=== PATIENT | female | born 1990 | race Hispanic/Latino ===

== ENCOUNTER 2019-05-23 08:09 | Emergency (ER) | payer OTHER | END 2019-05-23 12:34 | disposition home or self-care (01) | LOC: EDH 08:09 | DX: B35.0 Tinea barbae and tinea capitis (principal); L65.9 Nonscarring hair loss, unspecified; R11.0 Nausea; Z87.891 Personal history of nicotine dependence | CPT/HCPCS: 70450; 81025 ==

== ENCOUNTER 2023-12-03 17:03 | Emergency (ER) | payer MEDICAID ==
[~2023-12-03] VITALS: Ht 165.1 cm; Wt 90.7 kg
[~2023-12-03 17:03] MED LIST: CYCL5TAB PO; IBUP-2070 PO
[2023-12-03 17:54] LABS: BASOPHILS # (AUTO) 0.05 K/uL (0.00-0.20); BASOPHILS % (AUTO) 0.5 % (0.0-5.0); EOSINOPHILS # (AUTO) 0.08 K/uL (0.00-0.70); EOSINOPHILS % (AUTO) 0.7 % (0.0-8.0); IMMATURE GRANULOCYTE ABSOLUTE 0.07 K/uL (0-1); LYMPHOCYTES # (AUTO) 2.2 K/uL (1.0-4.8); LYMPHOCYTES % (AUTO) 20.2 % (21.0-51.0); MEAN CORPUSCULAR HEMOGLOBIN 32.7 pg (27.0-33.0); MEAN CORPUSCULAR VOLUME 96.2 fL (79-99); MONOCYTES % (AUTO) 9.3 % (3.0-13.0); NEUTROPHILS # (AUTO) 7.6 K/uL (1.8-7.7); NEUTROPHILS % (AUTO) 68.7 % (40.0-77.0); PLATELET COUNT (AUTO) 335 K/uL (130-400); RED BLOOD CELL COUNT(AUTO) 4.16 MIL/uL (4.00-5.50)
[2023-12-03] MEDS: 0.9%NACL 1000ML 1,000 ML IV ONE (18:06)
[2023-12-03 18:16] LABS: ALBUMIN 3.8 g/dL (3.5-5.0); BILIRUBIN,TOTAL 0.7 mg/dL (0.2-1.0); CREATININE 0.8 mg/dL (0.5-1.0); MAGNESIUM 2.2 mg/dL (1.80-2.40); POTASSIUM 3.7 mmol/L (3.5-5.1); TOTAL PROTEIN, SERUM 7.4 g/dL (6.0-8.3)
[2023-12-03] MEDS: HYDROXYZINE 25 MG TABLET PO ONE (18:37)
[2023-12-03] MEDS: ONDANSETRON 4MG INJ IVP ONE (20:14)
[2023-12-03 20:32] VITALS: BP 124/79; PULSE 78; RESP 18; O2SAT 98
== END 2023-12-03 20:49 | disposition home or self-care (01) ==
LOC: EDH 17:03
DX: F41.9 Anxiety disorder, unspecified (principal); R07.89 Other chest pain; J44.9 Chronic obstructive pulmonary disease, unspecified; I10 Essential (primary) hypertension; F17.200 Nicotine dependence, unspecified, uncomplicated; Z88.1 Allergy status to other antibiotic agents; Z88.2 Allergy status to sulfonamides
CPT/HCPCS: 99285; 96374; 96361; 71045; 82550; 83735; 84484 ×2; 80053; 84703; 85025; 36415; 93005; J7030; J2405

== ENCOUNTER → 2024-04-10 | Outpatient (CLI) | payer MEDICAID ==
[~2024-04-10] MED LIST changes: -CYCL5TAB PO; +CYCL5TAB3 PO
== END | disposition home or self-care (01) ==
LOC: SHCH 15:22
PROVIDERS: ATTEND Student in an Organized Health Care Education/Training Program
DX: I10 Essential (primary) hypertension (principal); R07.9 Chest pain, unspecified
CPT/HCPCS: 93306

== ENCOUNTER → 2024-07-25 | Outpatient (CLI) | payer MEDICAID ==
[~2024-07-25] MED LIST changes: +IOHEXOL 350 MG/ML 100ML INFUS..BTL IV ONE
--- NOTE | 2024-07-25 16:32 | HMCIMG ---
CT OF THE CHEST WITH CONTRAST- CT Cardiac Angio co-interpretation This is done as part of the CT cardiac angiogram study. The interpretation of the coronary arteries will be done by automatic pilot mechanic in a separate report. History: over-read Comparison: none CT Dose Index (CTDI): 77.90 mGy Dose Length Product (DLP): 493.40 total mGy PROTOCOL: Examination is done at 2.5 millimeter volumetric acquisition after contrast administration with Isovue 370, 100 cc IV, without complications. Photography is done at 5 millimeter thick intervals for the thorax. The examination begins above the heart and therefore the lung apices are incompletely included. The rest of the left lung is included but the right lung is only included up to its middle third. The periphery of the right lung is not included in the study. FINDINGS: The visualized part of the airway is preserved. The bony and soft tissue structures of the chest wall are unremarkable. The aorta is unremarkable. No mediastinal lymphadenopathy is seen. The lung windows demonstrate no worrisome pulmonary nodules, masses or infiltrates. There is no evidence of pulmonary embolism in the visualized lung segments. The upper abdominal views are unremarkable. Impression: No significant abnormalities identified.
== END | disposition home or self-care (01) ==
LOC: RAH 13:59
PROVIDERS: ATTEND Student in an Organized Health Care Education/Training Program
DX: R07.9 Chest pain, unspecified (principal)
CPT/HCPCS: 75574; Q9967

== ENCOUNTER 2025-05-03 06:53 | Inpatient (IN) | payer MEDICAID ==
[~2025-05-03] VITALS: Ht 165.1 cm; Wt 85.3 kg
[~2025-05-03 06:53] MED LIST changes: +IBUP-1492 PO; -IBUP-2070 PO; -IOHEXOL 350 MG/ML 100ML INFUS..BTL IV ONE
[2025-05-03 07:15] LABS: IMMATURE GRANULOCYTE ABSOLUTE 0.07 K/uL (0-1); NUCLEATED RED BLOOD CELLS 0.0 % (0.0-0.19); PLATELET COUNT (AUTO) 349 K/uL (130-400); RED BLOOD CELL COUNT(AUTO) 3.61 MIL/uL (4.00-5.50); RED CELL DISTRIBUTION WIDTH 13.3 % (11.0-15.5); WHITE BLOOD COUNT (AUTO) 11.3 K/uL (4.8-10.8)
[2025-05-03 07:27] LABS: CREATININE 0.7 mg/dL (0.5-1.0); GLOMERULAR FILTR. RATE CALC 116.0 mL/min (>90); GLUCOSE,RANDOM 88.0 mg/dL (70-105); SODIUM SERUM 143.0 mmol/L (136-145); UREA NITROGEN, BLOOD 16.0 mg/dL (7-18)
--- NOTE | 2025-05-03 07:32 | NUR ---
REPORT RECEIVED FROM LIZ PEREZ
[2025-05-03] MEDS: 0.9%NACL 1000ML 1,000 ML IV ONE (07:52)
[2025-05-03 07:56] LABS: INR 0.98 (0.85-1.15)
[2025-05-03 08:21] LABS: ASPARTATE AMINOTRANSFERASE 17.0 U/L (10-37); CREATINE KINASE, TOTAL 127.0 U/L (21-232); HCG,QUANTITATIVE 1.0 mIU/mL (0-5); TOTAL PROTEIN, SERUM 7.3 g/dL (6.0-8.3)
--- NOTE | 2025-05-03 08:24 | NUR ---
URINE COLLECTED, LABELED AND SENT TO LAB
[2025-05-03 08:27] LABS: SARS-CoV-2, RNA, NAAT NEGATIVE SARS CoV-2 (NEGATIVE)
--- NOTE | 2025-05-03 08:30 | HMCIMG ---
EXAM: CR Chest, 1 View. CLINICAL HISTORY: Shortness of breath COMPARISON: November 04, 2023. FINDINGS: LUNGS: There is no mass, infiltrate, or acute pulmonary abnormality. PLEURAL SPACES: No evidence of pleural effusion or pneumothorax. MEDIASTINUM: The cardiomediastinal silhouette is within normal limits. BONES: No aggressive appearing osseous lesion seen. IMPRESSION: No acute cardiopulmonary pathology is evident. No significant interval change. /[place]
[2025-05-03 08:32] LABS: INFLUENZA TYPE A Negative For Type A (NEGATIVE); INFLUENZA TYPE B Negative For Type B (NEGATIVE)
[2025-05-03 08:33] LABS: APPEARANCE,URINE CLOUDY (CLEAR); GLUCOSE, URINE (UA) NEGATIVE (NEGATIVE); LEUKOCYTE ESTERASE ,URINE 500 Leu/uL (NEGATIVE); NITRATE,URINE NEGATIVE (NEGATIVE); OCCULT BLOOD,URINE NEGATIVE (NEGATIVE)
--- NOTE | 2025-05-03 08:37 | EKG ---
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
[2025-05-03 08:49] LABS: SQUAMOUS EPITHELIAL CELL,UR MANY /HPF (0-2)
--- NOTE | 2025-05-03 08:50 | ERN ---
General Chief Complaint: Other Problems Stated Complaint: LUPUS FLARE Time Seen by MD: 07:37 History of Present Illness Initial Comments 35-year-old female past medical history of lupus came in for generalized body weakness lower extremity rash and lupus flare-up. Allergies: Coded Allergies: sulfamethoxazole (Unverified Allergy, Unknown, 01/24/23) trimethoprim (Unverified Allergy, Unknown, 01/24/23) promethazine (Unverified Adverse Reaction, Mild, HIVES, 05/03/25) Sulfa (Sulfonamide Antibiotics) (Unverified Adverse Reaction, Unknown, HIVES, 05/03/25) Home Meds Active Scripts Ibuprofen (Ibuprofen) 600 Mg Tablet, 600 MG PO Q6H PRN for PAIN, #20 TAB 0 Refills Prov:CRUZELLIOTTJohnnyRAYNA Rae [facility] 01/24/23 Cyclobenzaprine HCl (Cyclobenzaprine HCl) 5 Mg Tablet, 5 MG PO [id number], #20 TAB 0 Refills Prov:CRUZELLIOTTJohnnyRAYNA [facility] 01/24/23 Past Medical History Past Medical History: Anxiety, COPD, Fibromyalgia, Hypertension, Seizure, Other Medical History Other: PTSD, LUPUS Past Surgical History: Surgical History Other: " LEAP PROCEDURE" Social History Social History: Smokers Female( History) : 1 Para: 0 Aborts: 1 ROS Dictation Generalized body weakness Physical Exam General Appearance: (+) no apparent distress Orientation: (+) alert, (+) oriented x 3 Neck: (+) normal inspection, (+) supple Respiratory: (+) chest non-tender, (+) lungs clear Heart: (+) regular, (+) no gallop Gastrointestinal: (+) soft, (+) non-tender, (+) no organomegaly, (+) bowel sound present Results Laboratory and Microbiology Lab and Micro Result Laboratory Tests Test 05/03/25 07:00 05/03/25 07:43 05/03/25 08:06 05/03/25 08:19 White Blood Count 11.3 K/uL (4.8-10.8) H Red Blood Count 3.61 MIL/uL (4.00-5.50) L Hemoglobin 11.7 g/dL (12.0-16.0) L Hematocrit 35.8 % (36-48) L Mean Corpuscular Volume 99.2 fL (79-99) H Mean Corpuscular Hemoglobin 32.4 pg (27.0-33.0) Mean Corpuscular Hemoglobin Concent 32.7 g/dL (32.0-36.0) Red Cell Distribution Width 13.3 % (11.0-15.5) Platelet Count 349 K/uL (130-400) Mean Platelet Volume 9.0 fL (7.5-10.5) Immature Granulocyte % (Auto) 0.6 % (0-1) Neutrophils (%) (Auto) 60.7 % (40.0-77.0) Lymphocytes (%) (Auto) 26.6 % (21.0-51.0) Monocytes (%) (Auto) 7.3 % (3.0-13.0) Eosinophils (%) (Auto) 4.1 % (0.0-8.0) Basophils (%) (Auto) 0.7 % (0.0-5.0) Neutrophils # (Auto) 6.9 K/uL (1.8-7.7) Lymphocytes # (Auto) 3.0 K/uL (1.0-4.8) Monocytes # (Auto) 0.8 K/uL (0.1-1.0) Eosinophils # (Auto) 0.46 K/uL (0.00-0.70) Basophils # (Auto) 0.08 K/uL (0.00-0.20) Absolute Immature Granulocyte (auto 0.07 K/uL (0-1) Nucleated Red Blood Cells 0.0 % (0.0-0.19) Prothrombin Time 10.4 SEC (9.6-11.6) Prothromb Time International Ratio 0.98 (0.85-1.15) Activated Partial Thromboplast Time 24.8 SEC (26.3-35.5) L Sodium Level 143 mmol/L (136-145) Potassium Level 4.4 mmol/L (3.5-5.1) Chloride Level 108 mmol/L (101-111) Carbon Dioxide Level 24 mmol/L (21-32) Blood Urea Nitrogen 16 mg/dL (7-18) Creatinine 0.7 mg/dL (0.5-1.0) Glomerular Filtration Rate Calc 116 mL/min (>90) Random Glucose 88 mg/dL (70-105) Total Calcium 8.4 mg/dL (8.5-10.1) L Troponin I High Sensitivity < 4 ng/L (4-50) L Procalcitonin < 0.05 ng/mL (0.05-0.5) L Lactic Acid Level 0.8 mmol/L (0.8-2.5) Total Bilirubin 0.2 mg/dL (0.2-1.0) Direct Bilirubin 0.1 mg/dL (0.0-0.3) Aspartate Amino Transf (AST/SGOT) 17 U/L (10-37) Alanine Aminotransferase (ALT/SGPT) 24 U/L (12-78) Alkaline Phosphatase 75 U/L (50-136) Total Creatine Kinase 127 U/L (21-232) # Total Protein 7.3 g/dL (6.0-8.3) Albumin 3.7 g/dL (3.5-5.0) Human Chorionic Gonadotropin, Quant 1 mIU/mL (0-5) Influenza Type A Antigen Negative For Type A Influenza Type B Antigen Negative For Type B SARS-CoV-2, RNA, NAAT NEGATIVE SARS CoV-2 Urine Color LIGHT-YELLOW (YELLOW) Urine Appearance CLOUDY (CLEAR) H Urine pH 5.5 (5.0-8.0) Urine Specific [place] 1.018 (1.001-1.031) Urine Protein NEGATIVE mg/dL (NEGATIVE) Urine Glucose (UA) NEGATIVE mg/dL (NEGATIVE) Urine Ketones NEGATIVE mg/dL (NEGATIVE) Urine Occult Blood NEGATIVE (NEGATIVE) Urine Nitrate NEGATIVE (NEGATIVE) Urine Bilirubin NEGATIVE mg/dL (NEGATIVE) Urine Urobilinogen 0.2 mg/dL (0.2-1.0) Urine Leukocyte Esterase 500 Max/uL (NEGATIVE) H MDM MDM: Differential diagnosis: Rationale: Tests considered and ordered secondary to shared decision making include: labs, ECG and radiology Previous outside records reviewed: Old ER visits. Risk of complication and/or morbidity or mortality of patient management: None Medications-Per medication reconciliation Need for hospitalization: Patient does meet criteria for hospitalization. Need for emergency major/minor surgery: No There are no social concerns with this patient. Prescription drug management Prescriptions will include symptomatic care Patient's prior external medical records from other ER visits were reviewed by me as indicated. Prior testing and results from previous visits were reviewed. Prior tests were taken into account with medical decision making and resource utilization, independent historian/historians were used to obtain complete medical history. I independently interpreted the test that were performed, results were reviewed by me and considered findings on radiology if ordered. Medical management and examination interpretation discussions were had by me with other qualified healthcare professionals as indicated for the patient's care. ED Course Orders Procedure Category Date Status Time Cbc With Differential LAB 05/03/25 Complete 06:58 Basic Metabolic Panel LAB 05/03/25 Complete 06:58 12 Lead Ekg Tracing- EKG 05/03/25 Complete Technical 07:34 Covid Rna Naat LAB 05/03/25 Complete 07:34 Creatine Kinase, Total LAB 05/03/25 Complete 07:34 Hcg,Quantitative LAB 05/03/25 Complete 07:34 Hepatic Function Panel LAB 05/03/25 Complete 07:34 Influenza Type A & B, LAB 05/03/25 Complete Rapid 07:34 Lactic Acid LAB 05/03/25 Complete 07:34 Procalcitonin LAB 05/03/25 Complete 07:34 Pt And Ptt LAB 05/03/25 Complete 07:34 Troponin I High LAB 05/03/25 Complete Sensitivity 07:34 Urinalysis LAB 05/03/25 In Process W/Microscopic 07:34 Chest 1vw RAD 05/03/25 Resulted 07:34 Methylprednisolone PHA 05/03/25 Complete Succ 125mg (Solu-Medr 08:00 Diphenhydramine Hcl PHA 05/03/25 Complete (Benadryl Inj) 08:00 0.9%Nacl 1000ml (Ns PHA 05/03/25 Complete 1000ml) 08:00 Current Medications Medications (Trade) Dose Ordered Sig/Kedar Route PRN Reason Start Time Stop Time Status Last Admin Dose Admin Diphenhydramine HCl (BENAdryl INJ) 25 mg ONCE ONCE IV 05/03/25 08:00 05/03/25 08:01 DC 05/03/25 07:52 Methylprednisolone Sodium Succinate (Solu-medROL 125MG) 120 mg ONCE ONCE IVP 05/03/25 08:00 05/03/25 08:01 DC 05/03/25 07:52 Sodium Chloride 1,000 ml @ 0 mls/hr ONCE ONCE IV 05/03/25 08:00 05/03/25 08:01 DC 05/03/25 07:52 Vital Signs Date Time Temp Pulse Resp B/P (MAP) Pulse Ox O2 Delivery O2 Flow Rate FiO2 05/03/25 06:58 97.9 79 20 129/81 98 Room Air* 0 21 05/03/25 06:55 98.2 90 12 152/90 99 Room Air DX & DISP Disposition: Inpatient Departure Impression: Primary Impression: Lupus Additional Impression: Dehydration Condition: Stable Referrals: SELF,REFERRAL (PCP) ANGELO REBOLLEDO MD May 03, 2025 08:50
[2025-05-03] MEDS ORDERED: GLUCAGON 1MG KIT 1 MG ML IM PRN (09:00)
[2025-05-03] MEDS ORDERED: MAG/ALUM/SIMETH 30 ML UDCUP PO PRN (09:00)
[2025-05-03] MEDS ORDERED: MAGNESIUM 2GM PREMIX 50ML 50 ML IV PRN (09:00)
[2025-05-03] MEDS ORDERED: FAMOTIDINE 20MG VIAL IV PRN (09:00)
[2025-05-03] MEDS ORDERED: NITROGLYCERIN 0.4 MG SL TAB SL PRN (09:00)
[2025-05-03] MEDS ORDERED: PoTASSium chl 10% ELIXIR 20MEQ 20 MEQ/15 ML UDCUP PO PRN (09:00)
[2025-05-03] MEDS ORDERED: PoTASSium chloRIDE 20MEQ ER 20 MEQ ERTAB PO PRN (09:00)
[2025-05-03] MEDS ORDERED: guaiFENesin-DM 200/20MG 10ML PO PRN (09:00)
[2025-05-03] MEDS ORDERED: DEXTROSE 50%-WATER 50 ML DISP.SYRIN IV PRN (09:00)
--- NOTE | 2025-05-03 10:14 | NUR ---
PT JUST NOW ASSIGNED BED [id number] BY SIGNALMAN RN
--- NOTE | 2025-05-03 10:20 | NUR ---
JULIUS SPAULDING JUST ARRIVED TO BEDSIDE.
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
[2025-05-03 10:53] LABS: AMPHET/METH SCREEN,URINE NEGATIVE (NEGATIVE); BARBITURATE SCREEN, URINE NEGATIVE (NEGATIVE); CANNABINOID SCREEN,URINE POSITIVE (NEGATIVE); COCAINE SCREEN,URINE NEGATIVE (NEGATIVE)
[2025-05-03] MEDS: FAMOTIDINE 20MG VIAL IV SCH (11:12)
[2025-05-03] MEDS: ZOSYN 3.375GM+NS 50ML 50 ML IV SCH (11:13)
[2025-05-03] MEDS: 0.9%NACL 1000ML 1,000 ML IV SCH (11:22)
--- NOTE | 2025-05-03 11:30 | NUR ---
FIRST FAILED ATTEMPT TO CALL REPORT. ZEE PEREZ CURRENTLY ROUNDING W/AN
[2025-05-03 12:15] VITALS: BP 134/76; PULSE 75; RESP 18; TEMP 98.5
--- NOTE | 2025-05-03 15:30 | NUR ---
CHEST PAIN: PT WITH COMPLAINT OF CHEST PRESSURE AND PAIN OF 8/10. STATES "HURTS TO TAKE A DEEP BREATH, BOTH ARMS TINGLING, AND VISION GETTING BLURRY." VITALS WITHIN NORMAL PARAMETERS WITH THE EXCEPTION OF BP WHICH READ 153/81. CONTACTED PROVIDER AND RECEIVED ORDERS. Addendum: 05/03/25 at 1534 by ZEE NOVA RN RN Amended: Links added.
[2025-05-03] MEDS ORDERED: HYDR200T75 PO (15:40)
--- NOTE | 2025-05-03 16:23 | EKG ---
[facility] Test Date: 2025-05-03 Test Time: 16:19:16 Pat Name: SJ MONROY Department: [facility] Room: 413 1 Gender: F Head Waitress: PRADEEP : 1990 Requested By: STANLEY HORNE Order Number: [id number] Reading MD: Deidre Wyman Measurements Intervals [place] Rate: 62 P: 20 IA: 122 QRS: 34 QRSD: 90 T: 17 QT: 452 QTc: 458 Interpretive Statements Normal sinus rhythm with sinus arrhythmia Compared to ECG 05/03/2025 07:40:35 No significant changes Electronically Signed On 05-05-2025 09:00:25 QUICK SKETCH ARTIST by Deidre Wyman Please click the below link to view image of tracing.
[2025-05-03 16:35] VITALS: BP 153/81; PULSE 66; RESP 19; TEMP 98.5
[2025-05-03 17:33] VITALS: O2SAT 97
[2025-05-03 20:00] VITALS: BP 135/88; PULSE 72; RESP 17; TEMP 97.9; O2SAT 96
[2025-05-04] VITALS (12 sets, daily range): BP systolic 136–147; BP diastolic 69–95; PULSE 57–76; RESP 18–20; TEMP 97.7–98.5; O2SAT 96–98
[2025-05-04 04:03] LABS: IMMATURE GRANULOCYTE ABSOLUTE 0.13 K/uL (0-1); NUCLEATED RED BLOOD CELLS 0.0 % (0.0-0.19); PLATELET COUNT (AUTO) 319 K/uL (130-400); RED BLOOD CELL COUNT(AUTO) 3.59 MIL/uL (4.00-5.50); RED CELL DISTRIBUTION WIDTH 13.2 % (11.0-15.5); WHITE BLOOD COUNT (AUTO) 12.9 K/uL (4.8-10.8)
[2025-05-04 04:43] LABS: ASPARTATE AMINOTRANSFERASE 16.0 U/L (10-37); CREATINE KINASE, TOTAL 98.0 U/L (21-232); CREATININE 0.7 mg/dL (0.5-1.0); GLOMERULAR FILTR. RATE CALC 116.0 mL/min (>90); GLUCOSE,RANDOM 125.0 mg/dL (70-105); SODIUM SERUM 144.0 mmol/L (136-145); TOTAL PROTEIN, SERUM 6.8 g/dL (6.0-8.3); UREA NITROGEN, BLOOD 15.0 mg/dL (7-18)
--- NOTE | 2025-05-04 08:19 | HMCIMG ---
EXAMINATION: DUPLEX ULTRASOUND EXAMINATION OF THE BILATERAL CAROTID AND VERTEBRAL ARTERIES. CLINICAL HISTORY: Syncope. COMPARISON: None provided. TECHNIQUE: Real-time ultrasound scan of the bilateral carotid and vertebral arteries, 2-D grayscale, with color Doppler flow and spectral waveform analysis. FINDINGS: Color and spectral Doppler interrogation of the carotid vessels on the right demonstrate peak systolic velocities as follows: CCA (Proximal and distal): 62 and 93 cm/s respectively. Bulb: 61 cm/s ECA: 111 cm/s ICA (Proximal, mid, and distal): 66, 75, and 74 cm/s respectively. Vertebral artery demonstrates antegrade flow: 40 cm/s. Right ICA/CCA ratio: 0.8 Peak systolic velocities on the left are as follows: CCA (Proximal and distal): 122 and 69 cm/s respectively. Bulb: 52 cm/s ECA: 108 cm/s ICA (Proximal, mid, and distal): 66, 84, and 84 cm/s respectively. Vertebral artery demonstrates antegrade flow: 60 cm/s. Left ICA/CCA ratio: 1.3 IMPRESSION: There is no significant stenosis or flow limiting lesions. /[place]
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
[2025-05-04] MEDS: LACTULOSE 20 GM/30 ML UDCUP PO PRN (14:41)
[2025-05-04] MEDS: ENOXAPARIN SODIUM 40 MG/0.4 ML SYRINGE SQ SCH (14:50)
[2025-05-04] MEDS: ARTIFICAL TEARS SOL 15 ML OU PRN (15:27)
--- NOTE | 2025-05-04 18:05 | NUR ---
INITIAL/DCP HOME Met w pt this afternoon to discuss dcp. Pt mentions that she lives w her friend and niece in an apartment complex w approx 2flights of steps. She mentions that she uses a cane or sw for ambulation and at times needs assist w ADLs dt her Lupus. She mentions that she is in the process of obtaining a provider. She receives food stamp assistance. Her preferred pharmacy is [facility]. Discharge goal is to return home.
[2025-05-05] VITALS (12 sets, daily range): BP systolic 125–162; BP diastolic 69–116; PULSE 54–80; RESP 14–20; TEMP 97.6–98.2; O2SAT 98–99
--- NOTE | 2025-05-05 00:15 | HMCSR ---
APPROVED REPORT EXAM: Two-dimensional and M-mode echocardiogram with Doppler and color Doppler. INDICATION ICD: Chest Pain 2D Dimensions RVDd 3.3 cm LVEF(%) 67.1 (>50%) LVED Vol(simp.) 137.0 mL IVSd 0.8 (0.7-1.1cm) FS(%) 37 % LVES Vol(simp.) 50.0 mL LVDd 4.7 (3.8-5.6cm) LA (2D) 3.9 (1.6-4.0cm) LVEF(%, simp.) 63 % PWd 0.8 (0.7-1.1cm) Ao Root(2D) 2.5 (2.0-3.7cm) LA ESV INDEX (BP) 31.36 mL/m2 LVDs 2.9 (2.5-4.0cm) LVOT diam 1.9 (1.8-2.4cm) IVC diam 2.2 cm Deformation Strain Apical 4 -18.1 % Apical 2 -21.6 % Apical 3 -21.4 % Global Strain -20.4 % M-Mode Dimensions EPSS 0.4 cm LA (MM) 3.7 (1.6-4.0cm) Ao Root(MM) 2.5 (2.0-3.7cm) Aortic Valve AoV Vmax 2.0 m/s Ao Peak GR 15.5 mmHg LVOT Vmax 1.3 m/s AoV VTI 0.4 m Ao Mean GR 7.1 mmHg LVOT VTI 0.32 m CRISTOBAL (VMAX) 1.90 cm2 CRISTOBAL (VTI) 2.1 cm2 Mitral Valve MV E Vmax 103.9 cm/s DECEL Time 226 ms MV A Vmax 57.4 cm/s P 1/2 T 65 ms E/A ratio 1.8 MVA (PHT) 3.4 cm2 TDI E/E' Medial 9.9 E/E' Lateral 7.3 Medial E' Peak V 10.48 cm/s Lateral E' Peak V 14.22 cm/s Pulmonary Valve PV Vmax 1.1 m/s PV VTI 0.31 m PV Mean GR 3.0 mmHg PV Peak GR 5.0 mmHg Left Ventricle The left ventricle is normal size. No regional wall motion abnormalities noted. Mild concentric left ventricular hypertrophy. Left ventricular systolic function is normal, estimated LVEF is 60 to 65%. The left ventricular diastolic function is normal. Right Ventricle The right ventricle is normal size. The right ventricular systolic function is normal. Atria The left atrium size is normal. The right atrium size is normal. Aortic Valve The aortic valve is normal in structure. Trace aortic regurgitation. There is no aortic valvular stenosis. Mitral Valve The mitral valve is normal in structure. Trace-mild mitral regurgitation. There is no mitral valve stenosis. Tricuspid Valve The tricuspid valve is normal in structure. Trace tricuspid regurgitation. RVSP is normal. Pulmonic Valve Pulmonic valve is not well visualized. Great Vessels The aortic root is normal in size. The IVC is normal in size and collapses >50% with inspiration. Pericardium There is no pericardial effusion. Conclusion The cardiac chambers are normal in size. Mild concentric left ventricular hypertrophy. No regional wall motion abnormalities noted. Left ventricular systolic function is normal, estimated LVEF is 60 to 65%. The left ventricular diastolic function is normal. Trace aortic regurgitation. Trace-mild mitral regurgitation. Trace tricuspid regurgitation. PASP is normal. There is no pericardial effusion.
[2025-05-05 04:20] LABS: IMMATURE GRANULOCYTE ABSOLUTE 0.17 K/uL (0-1); NUCLEATED RED BLOOD CELLS 0.0 % (0.0-0.19); PLATELET COUNT (AUTO) 294 K/uL (130-400); RED BLOOD CELL COUNT(AUTO) 3.33 MIL/uL (4.00-5.50); RED CELL DISTRIBUTION WIDTH 13.5 % (11.0-15.5); WHITE BLOOD COUNT (AUTO) 16.5 K/uL (4.8-10.8)
[2025-05-05 04:46] LABS: CREATININE 0.8 mg/dL (0.5-1.0); GLOMERULAR FILTR. RATE CALC 98.0 mL/min (>90); GLUCOSE,RANDOM 138.0 mg/dL (70-105); SODIUM SERUM 147.0 mmol/L (136-145); UREA NITROGEN, BLOOD 18.0 mg/dL (7-18)
[2025-05-05 06:20] LABS: ERYTHROCYTE SEDIMENTATION RATE 8 MM/HR (0-20)
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
--- NOTE | 2025-05-05 13:20 | NUR ---
REGARDING PATIENT DISCHARGE, WE WILL MONITOR PATIENT FOR TODAY AND POSSIBLE DISCHARGE TOMORROW.
[2025-05-05] MEDS: AMOX/CLAV 875/125MG TAB PO SCH (17:54)
[2025-05-06] VITALS (8 sets, daily range): BP systolic 140–188; BP diastolic 78–100; PULSE 60–95; RESP 18–20; TEMP 97.9–98.6; O2SAT 96–100
[2025-05-06 05:07] LABS: NUCLEATED RED BLOOD CELLS 0.0 % (0.0-0.19); PLATELET COUNT (AUTO) 284.0 K/uL (130-400); RED BLOOD CELL COUNT(AUTO) 3.12 MIL/uL (4.00-5.50); RED CELL DISTRIBUTION WIDTH 13.5 % (11.0-15.5); WHITE BLOOD COUNT (AUTO) 13.6 K/uL (4.8-10.8)
[2025-05-06 05:15] LABS: CREATININE 0.8 mg/dL (0.5-1.0); GLOMERULAR FILTR. RATE CALC 98.0 mL/min (>90); GLUCOSE,RANDOM 91.0 mg/dL (70-105); SODIUM SERUM 145.0 mmol/L (136-145); UREA NITROGEN, BLOOD 20.0 mg/dL (7-18)
--- NOTE | 2025-05-06 08:10 | NUR ---
WHEN WALKING INTO ROOM, NOTED PATIENT IN DISTRESS. WHEEZING EXPORATORY HEARD. AUSCULTATED LUNG SOUNDS, CLEAR NOTED. PATIENT VISIBLY SHAKING, REPORTING A PAIN OF 8/10. VS: T 97.5, P 110, BP 167/89, O2 [address] HUERTA ON PATIENT'S CHANGE OF CONDITION. NEW ORDERS FOR ALBUTEROL TREATMENTS PRN, AND NORVASC, CARRIED OUT.
[2025-05-06] MEDS: amLODIPine 2.5 MG TAB PO SCH (08:50)
[2025-05-06] MEDS ORDERED: AMOX1TAB16 PO (10:59)
--- NOTE | 2025-05-06 13:52 | NUR ---
DR. HUERTA CALLED NURSE TO REPORT DISCHARGE ORDER BEING PLACED. PATIENT STATED THEY DID NOT BELIEVE THEY COULD GET THE CARE AT [facility]. AWARE, DISCHARGE ORDER PENDING.
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
[2025-05-06] MEDS ORDERED: ONDA-104 PO (14:10)
[2025-05-06] MEDS ORDERED: AMLO-257 PO (14:10)
[2025-05-06] MEDS ORDERED: PREG75 PO ×2 (14:19→16:36)
--- NOTE | 2025-05-06 14:20 | NUR ---
DR. HUERTA PLACED NEW ORDERS FOR HYDRALAZINE AND NORVASC, CARRIED OUT
[2025-05-06] MEDS: amLODIPine 5 MG TAB PO ONE (15:32)
--- NOTE | 2025-05-06 18:25 | NUR ---
DISCHARGE PATIENT DISCHARGED PER MD. PERIPHERIAL IV REMOVED, CATHETER INTACT. DISCHARGE INSTRUCTIONS GIVEN WITH NEW PRINTED PRESCRIPTIONS. PATIENT VERBALIZED UNDERSTANDING. PATIENT LEFT VIA WHEELCHAIR TO PRIVATE CAR. ALL QUESTIONS ANSWERED.
--- NOTE | 2025-05-07 08:28 | NUR ---
DC PLAN CM PRICED MEDICATIONS. ALSO LET NURSE KNOW THAT LYRICA WAS MENTIONED IN DC ORDER BUT NOT PLACED IN THE MEDS ORDERED. NURSE CALLING PRIMARY TO VERIFY LYRICA MEDICATION.
== END 2025-05-06 18:32 | disposition home or self-care (01) | DRG 463 ==
LOC: EDH 06:53 → EDHIP 06:54 → 4CH 12:15
PROVIDERS: ADMIT Family Medicine; ATTEND Family Medicine
DX: N30.00 Acute cystitis without hematuria (principal); D64.9 Anemia, unspecified; G40.909 Epilepsy, unspecified, not intractable, without status epilepticus; J44.9 Chronic obstructive pulmonary disease, unspecified; I10 Essential (primary) hypertension; L93.0 Discoid lupus erythematosus; R55 Syncope and collapse; E86.0 Dehydration; F41.9 Anxiety disorder, unspecified; F43.10 Post-traumatic stress disorder, unspecified; Z79.899 Other long term (current) drug therapy; Z98.891 History of uterine scar from previous surgery; Z87.891 Personal history of nicotine dependence
CPT/HCPCS: 36415; 71045; 80048; 80053; 80076; 80305; 81001; 82140; 82150; 82550; 82948; 83036; 83605; 83690; 83735; 83880; 84145; 84439; 84443; 84481; 84484; 84702; 85025; 85027; 85610; 85651; 85730; 86140; 87086; 87635; 87804; 93005; 93306; 93356; 93880; 94640; 96374; 96375; 99285; G0378; J1200; J1650; J1885; J2270; J2405; J2543; J2919; J7030; J1308